=== PATIENT | female | born 2000 | race Caucasian/White ===

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

== ENCOUNTER 2021-01-26 21:03 | Emergency (ER) | payer OTHER ==
[2021-01-26 21:09] VITALS: BP 125/82; PULSE 93; RESP 20; TEMP 97.6
[2021-01-26] MEDS ORDERED: SODIUM CHLORIDE 0.9% 500 ML 500 ML IV ONE (21:12)
[2021-01-26] MEDS ORDERED: FAMOTIDINE 20 MG/2 ML VIAL IV STA (21:12)
[2021-01-26] MEDS ORDERED: methylPREDNISolone SOD SUCCI 125 MG/2 ML VIAL IV STA (21:12)
[2021-01-26] MEDS ORDERED: diphenhydrAMINE 50 MG/ML 1 ML VIAL IVP STA (21:12)
--- NOTE | 2021-01-26 21:38 | ED ---
Allergic Reaction HPI - General Chief complaint: Allergic Reaction Stated complaint: Allergic reaction Time Seen by Provider: 01/26/21 21:12 Source: patient, RN notes reviewed Mode of arrival: ambulatory Limitations: no limitations - History of Present Illness Initial Comments: 20-year-old female presents emergency Department with chief complaint ALLERGIC reaction. Patient's had recurrent ALLERGIC reactions has not spent seen by [facility]. Patient states that she was at herself Rho[employer]AM happened today. She states not drink any unusual. She states she is very itchy having mild shortness of breath. Patient states she took one ALLERGY pill prior arrival. - Related Data Previous Rx's Medication Instructions Recorded EPINEPHrine (Auto Inject) [Epipen] 0.3 mg IM ONCE PRN #1 pack 01/26/21 Allergies Allergy/AdvReac Type Severity Reaction Status Date / Time cat dander Allergy Unknown Verified 01/26/21 21:09 pollen extracts Allergy Unknown Verified 01/26/21 21:09 Review of Systems ROS Statement: Those systems with pertinent positive or pertinent negative responses have been documented in the HPI. ROS Other: All systems not noted in ROS Statement are negative. Past Medical History Past Medical History: No Reported History History of Any Multi-Drug Resistant Organisms: None Reported Past Surgical History: Tonsillectomy Past Psychological History: No Psychological Hx Reported Smoking Status: Never smoker Past Alcohol Use History: None Reported Past Drug Use History: None Reported General Exam Limitations: no limitations General appearance: alert, in no apparent distress Head exam: Present: atraumatic, normocephalic, normal inspection Eye exam: Present: normal appearance, PERRL, EOMI. Absent: scleral icterus, conjunctival injection, periorbital swelling ENT exam: Present: normal exam, normal oropharynx, mucous membranes moist Neck exam: Present: normal inspection, full ROM. Absent: tenderness, meningismus, lymphadenopathy Respiratory exam: Present: normal lung sounds bilaterally. Absent: respiratory distress, wheezes, rales, rhonchi, stridor Cardiovascular Exam: Present: regular rate, normal rhythm, normal heart sounds. Absent: systolic murmur, diastolic murmur, rubs, gallop, clicks Neurological exam: Present: alert Skin exam: Present: warm, dry, intact, normal color, urticaria. Absent: rash Course Vital Signs 01/26/21 21:05 Temperature 97.6 F Pulse Rate 93 Respiratory 20 Rate Blood Pressure 125/82 O2 Sat by Pulse 97 Oximetry Medical Decision Making - Medical Decision Making Patient presented for ALLERGIC reaction. She was given site Medrol Pepcid and Benadryl symptoms all resolved. Patient will follow-up with f[facility] pol[facility]. Return parameters were discussed. Disposition Clinical Impression: Allergic reaction Disposition: HOME SELF-CARE Condition: Stable Instructions (If sedation given, give patient instructions): Anaphylaxis (ED) Additional Instructions: Please continue antihistamines for minimal 24 hours. Please return to the Emergency Department if symptoms worsen or any other concerns. Prescriptions: EPINEPHrine (Auto Inject) [Epipen] 0.3 mg IM ONCE PRN #1 pack PRN Reason: Anaphylaxis Is patient prescribed a controlled substance at d/c from ED?: No Referrals: Francois Duran MD [STAFF PHYSICIAN] - 1-2 days Violetta Neff MD [STAFF PHYSICIAN] - 1-2 days Benito Bolden MD [STAFF PHYSICIAN] - 1-2 days Coty Li MD [STAFF PHYSICIAN] - 1-2 days Time of Disposition: 22:11
[2021-01-26] MEDS ORDERED: hydrOXYzine HCL 25 MG TAB PO STA (22:20)
== END 2021-01-26 23:21 | disposition home or self-care (01) ==
LOC: EC 21:03
DX: R06.02 Shortness of breath (principal); L50.0 Allergic urticaria; T78.40XA Allergy, unspecified, initial encounter
CPT/HCPCS: 99283; 96374; 96375 ×2; J1200; J2930

== ENCOUNTER → 2021-02-19 | Outpatient (CLI) | payer OTHER ==
[2021-02-19 18:23] LABS: Basophils # (A) 0.04 X 10*3/uL (0.00-0.10); Basophils % (A) 0.6 %; Eosinophils # (A) 0.19 X 10*3/uL (0.04-0.35); Eosinophils % (A) 2.6 %; HCT 41.7 % (37.2-46.3); HGB 13.4 g/dL (12.0-15.0); Lymphocytes # (A) 1.96 X 10*3/uL (0.90-5.00); Lymphocytes % (A) 27.1 %; MCH 28.7 pg (27.0-32.0); MCHC 32.1 g/dL (32.0-37.0); MCV 89.3 fL (80.0-97.0); Mean Platelet Volume 10.2 fL (9.5-12.2); Monocytes # (A) 0.48 X 10*3/uL (0.20-1.00); Monocytes % (A) 6.6 %; Neutrophils # (A) 4.53 X 10*3/uL (1.80-7.70); Neutrophils % (A) 62.8 %; Platelet Count 351 X 10*3/uL (140-440); RBC 4.67 X 10*6/uL (4.10-5.20); RDW 12.6 % (11.5-14.5); WBC 7.22 X 10*3/uL (4.50-10.00)
[2021-02-19 22:47] LABS: Alternaria alternata IgE 6.31 kU/L; Codfish IgE <0.10 kU/L
[2021-02-19 22:48] LABS: Egg White IgE <0.10 kU/L
[2021-02-20 14:04] LABS: Pork IgE Class CLASS 0
[2021-02-20 14:05] LABS: Beef IgE <0.10 kU/L (<0.10); Beef IgE Class CLASS 0; Gluten IgE Class CLASS 0; Tuna IgE <0.10 kU/L (<0.10); Tuna IgE Class CLASS 0; Watermelon IgE Class CLASS 0
== END | disposition home or self-care (01) ==
LOC: LABWHC1 12:33
PROVIDERS: ATTEND Allergy & Immunology
DX: T78.2XXA Anaphylactic shock, unspecified, initial encounter (principal)
CPT/HCPCS: 36415; 83520; 85025; 86003